=== PATIENT | female | born 1965 | race Caucasian/White ===

== ENCOUNTER 2019-01-05 18:53 | Inpatient (IN) | payer MEDICARE, MEDICAID ==
[~2019-01-05] VITALS: Ht 162.5 cm; Wt 74.9 kg
--- NOTE | ~2019-01-05 | PR ---
[place], [place] PROGRESS NOTE NAME: SHERRY BAEZ UNIT #: [id number] ROOM: 310 DOCTOR: YORDY SALGUERO CNP BIRTHDATE: [birth year] DOS: 01/13/2019 CHIEF COMPLAINT: "I have to change my sheets." SUMMARY OF VISIT: The patient was interviewed as she sat in the dining room coloring a picture. She engaged readily in conversation with me. She reports that she ate all of her breakfast and that she slept well last night. She reports that she feels good. Staff reports that the patient has not exhibited any behaviors. She has been compliant with medication. The patient does continue to inappropriately laugh at times. However, the patient's sister has reported to staff that this is the patient's baseline. MENTAL STATUS EXAMINATION: The patient is alert and oriented. She was pleasant and cooperative with me. No overt oren or hypomania noted. No delusions or paranoia noted. No psychotic symptoms noted. No auditory or visual hallucinations noted. Mood was euthymic. Affect was appropriate. PLAN: The patient's p.r.n. order for Ativan did , so I did renew Ativan 0.5 mg q.8 hours p.r.n. for anxiety or agitation. I will continue the patient's other medications as prescribed. The patient seems to be tolerating medications well and they appear to be effective. We will encourage the patient to engage in individual and calderón milieu activity. Continue fall and safety precautions. Plan to return the patient to the least restrictive environment when she is considered psychiatrically stable. Yordy Salguero CNP CM:PNTRANS [id number] YORDY SALGUERO CNP 01/13/19 2243 interface
--- NOTE | ~2019-01-05 | PR ---
[place], [place] PROGRESS NOTE NAME: SHERRY BAEZ UNIT #: [id number] ROOM: 310 DOCTOR: YORDY SALGUERO CNP BIRTHDATE: [birth year] DOS: 01/14/2019 CHIEF COMPLAINT: "I am doing good." SUMMARY OF VISIT: The patient was interviewed as she sat in the activity room coloring. The patient engaged readily in conversation with me. She reports that she slept well and her appetite has been good. She denies any auditory or visual hallucinations. The patient reports that she is happy. She denies feeling anxious or agitated. Staff reports that the patient has been compliant. No behaviors exhibited. Taking medications as prescribed. MENTAL STATUS EXAMINATION: The patient is alert and oriented. She was pleasant and cooperative with me. No oren or hypomania noted. No delusions or paranoia noted. No psychotic symptoms noted. No auditory or visual hallucinations noted. The patient's mood is euthymic. Affect is congruent with mood. PLAN: I will continue the patient's medications as prescribed. She seems to be tolerating medication without side effects. We will continue to monitor and support. Continue to encourage the patient to engage in individual and calderón milieu activity. Continue fall and safety precautions. Plan is to return the patient to the least restrictive environment when she is considered psychiatrically stable. Yordy Salguero CNP CM:PNTRANS [id number] YORDY SALGUERO CNP 01/15/19 0036 interface
--- NOTE | ~2019-01-05 | PR ---
[place], [place] PROGRESS NOTE NAME: SHERRY BAEZ UNIT #: [id number] ROOM: 312 DOCTOR: XIN CABAN MD BIRTHDATE: [birth year] DOS: 01/09/2019 INTERVAL NOTE CHIEF COMPLAINT: "Oh, I am tired." SUMMARY OF THE VISIT: The patient was interviewed as she was resting in bed. She did awake and engage in conversation, although it was rather superficial where she complained of being somewhat tired. She voiced no other complaint and there was no agitation or aggression. Other than the tiredness, she denied any other side effect from the medicine. MENTAL STATUS: She is alert and oriented with time gaps. Mood does seem to be more euthymic. Affect is more appropriate. There is no oren or hypomania. There were no voiced delusions or paranoia. Short-term memory does have gaps. PLAN: I will continue her current psychotropic regimen, monitor for risk, benefit, engage in individual and calderón milieu activity, returning to the least restrictive environment when stable. XIN CABAN MD CM:PNTRANS [id number] XIN CABAN MD 01/09/19 1541 interface
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
--- NOTE | ~2019-01-05 | PR ---
[place], [place] PROGRESS NOTE NAME: SHERRY BAEZ UNIT #: [id number] ROOM: 312 DOCTOR: XIN CABAN MD BIRTHDATE: [birth year] DOS: 01/08/2019 INTERVAL NOTE CHIEF COMPLAINT: "Oh, I am liking it here, thank you so much." SUMMARY OF THE VISIT: The patient was interviewed as she was sitting and watching television with several female peers. She had already eaten her breakfast. She was bright and pleasant upon approach and offered no complaints, reporting that she likes it here and thanked me for taking good care of her. She outwardly is not exhibiting sedation or somnolence. There are no extrapyramidal symptoms or tardive dyskinesia. MENTAL STATUS: She is alert and oriented to person, place, not necessarily totally to time. Mood does seem to be improving and affect is much more appropriate. There is no hypomania, oren or psychosis. PLAN: I will go ahead and increase her Clozaril from 25 mg in the morning to 25 b.i.d. while maintaining her nighttime dose. Continue to engage in individual and calderón milieu activity, returning to the least restrictive environment when psychiatrically stable. XIN CABAN MD CM:PNTRANS [id number] XIN CABAN MD 01/08/19 2316 interface
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
[2019-01-05] MEDS ORDERED: CLOZAPINE200 MG PO (22:06)
[2019-01-05] MEDS ORDERED: TYLENOL EXTRA500 MG PO (22:07)
[2019-01-05] MEDS ORDERED: CALTRATE 600 +1 EACH PO (22:07)
[2019-01-05] MEDS ORDERED: CLONAZEPAM0.5 M2 PO (22:08)
[2019-01-05] MEDS ORDERED: DIVALPROEX SOD500 MG PO (22:08)
[2019-01-05] MEDS ORDERED: DIVALPROEX SOD250 MG PO (22:08)
[2019-01-05] MEDS ORDERED: LEVOTHYROXINE125 MCG PO (22:08)
[2019-01-05] MEDS ORDERED: MUCINEX ER600 MG PO (22:09)
[2019-01-05] MEDS ORDERED: STOOL SOFTENER100 M3 PO (22:10)
[2019-01-05] MEDS ORDERED: VITAMIN E400 UNI2 PO (22:10)
[2019-01-06 00:03] VITALS: BP 119/71
[2019-01-06 07:48] VITALS: BP 130/74
[2019-01-06 07:55] LABS: THYROID STIM HORMONE (HS) 3.45 uIU/ml (0.358-4.75); VALPROIC ACID (DEPAKENE) 73.1 ug/ml (50-100)
[2019-01-06 08:58] LABS: VITAMIN D, 25-HYDROXY 34.8 ng/mL (30-100)
[2019-01-06 20:00] VITALS: BP 128/83
[2019-01-07 07:07] VITALS: BP 124/76
[2019-01-07 12:34] LABS: BASO % 0.5 % (0.0-1.0); EOS # 0.1 10*3/uL (0.0-0.4); EOS % 1.2 % (1.0-4.0); HEMATOCRIT 44.2 % (37.0-47.0); HEMOGLOBIN 14.5 g/dl (12.0-16.0); LYMPH # 3.1 10*3/uL (1.3-4.4); MEAN CELL VOLUME 89.8 fl (81.0-99.0); MEAN CORPUSCULAR HGB 29.5 pg (27.0-31.0); MEAN CORPUSCULAR HGB CONC 32.8 g/dl (33.0-37.0); MEAN PLATELET VOLUME 11.2 fl (9.6-12.3); MONO # 0.5 10*3/uL (0.1-1.0); NEUT # 4.6 10*3/uL (2.3-7.9); NEUT % 54.9 % (47.0-73.0); PLATELET COUNT AUTOMATED 206 10*3/uL (130-400); RED BLOOD COUNT 4.92 10*6/uL (4.10-5.10); RED CELL DISTRI WIDTH 12.7 % (0-14.5); WHITE BLOOD COUNT 8.4 10*3/uL (4.8-10.8)
[2019-01-07 19:43] VITALS: BP 129/64
[2019-01-08 07:45] VITALS: BP 127/71
[2019-01-08 20:00] VITALS: BP 115/82
[2019-01-09 07:40] VITALS: BP 129/68
[2019-01-09 20:01] VITALS: BP 149/77
[2019-01-10 07:22] VITALS: BP 130/85; BP 150/75
[2019-01-10 20:05] VITALS: BP 126/82
[2019-01-11 07:32] VITALS: BP 118/67
[2019-01-11 20:00] VITALS: BP 129/70
[2019-01-12 08:53] VITALS: BP 130/90
[2019-01-12 20:00] VITALS: BP 138/75
[2019-01-13 07:32] VITALS: BP 108/74
[2019-01-13 20:12] VITALS: BP 135/88
[2019-01-14 07:35] VITALS: BP 127/83
[2019-01-14 19:50] VITALS: BP 131/85
[2019-01-15 06:44] LABS: BASO # 0.1 10*3/uL (0.0-0.1); BASO % 0.6 % (0.0-1.0); EOS # 0.2 10*3/uL (0.0-0.4); EOS % 2.4 % (1.0-4.0); HEMATOCRIT 39.2 % (37.0-47.0); HEMOGLOBIN 12.9 g/dl (12.0-16.0); LYMPH # 3.1 10*3/uL (1.3-4.4); LYMPH % 39.3 % (27.0-41.0); MEAN CELL VOLUME 89.5 fl (81.0-99.0); MEAN CORPUSCULAR HGB 29.5 pg (27.0-31.0); MEAN CORPUSCULAR HGB CONC 32.9 g/dl (33.0-37.0); MEAN PLATELET VOLUME 10.5 fl (9.6-12.3); MONO # 0.6 10*3/uL (0.1-1.0); MONO % 7.4 % (3.0-9.0); NEUT # 3.9 10*3/uL (2.3-7.9); PLATELET COUNT AUTOMATED 241 10*3/uL (130-400); RED BLOOD COUNT 4.38 10*6/uL (4.10-5.10); RED CELL DISTRI WIDTH 13.2 % (0-14.5); WHITE BLOOD COUNT 7.9 10*3/uL (4.8-10.8)
[2019-01-15 07:28] VITALS: BP 125/75
[2019-01-15 20:00] VITALS: BP 117/73
[2019-01-16 07:23] VITALS: BP 136/80
[2019-01-16] MEDS ORDERED: CLONAZEPAM0.5 M2 PO (08:58)
[2019-01-16] MEDS ORDERED: CLOZAPINE100 MG PO (08:58)
[2019-01-16] MEDS ORDERED: CLOZAPINE25 MG PO (08:58)
[2019-01-16] MEDS ORDERED: SYNTHROID,LEV125 MCG PO (12:02)
== END 2019-01-16 13:44 | disposition other institution (70) | DRG 885 ==
LOC: 3N 18:53
PROVIDERS: Nurse Practitioner Women's Health; Registered Nurse; ADMIT Psychiatry & Neurology Psychiatry
DX: F25.9 Schizoaffective disorder, unspecified (principal); F31.9 Bipolar disorder, unspecified; R26.2 Difficulty in walking, not elsewhere classified; M81.0 Age-related osteoporosis without current pathological fracture; E66.3 Overweight; Z88.1 Allergy status to other antibiotic agents; Z88.0 Allergy status to penicillin; Z88.8 Allergy status to other drugs, medicaments and biological substances; Z79.899 Other long term (current) drug therapy; Z90.710 Acquired absence of both cervix and uterus; Z68.28 Body mass index [BMI] 28.0-28.9, adult